=== PATIENT | male | born 1930 | race Caucasian/White ===

== ENCOUNTER 2019-12-09 17:10 | Inpatient (IN) | payer OTHER ==
[~2019-12-09] VITALS: Ht 160 cm; Wt 81.6 kg
[2019-12-09] MEDS ORDERED: PERFOROMIS20 MCG/2 M (18:40)
[2019-12-09] MEDS ORDERED: AVAPRO75 MG (18:42)
[2019-12-09] MEDS ORDERED: LIPITOR40 MG (18:43)
[2019-12-09] MEDS ORDERED: GLIMEPIRIDE1 MG (18:43)
[2019-12-09] MEDS ORDERED: JANUMET 50-1,01 EACH (18:43)
[2019-12-09] MEDS ORDERED: GLIMEPIRIDE2 M1 (18:44)
[2019-12-09] MEDS ORDERED: DUREZOL5 ML (18:44)
[2019-12-09] MEDS ORDERED: SYNTHROID88 MCG (18:45)
[2019-12-09] MEDS ORDERED: LASIX80 MG (18:46)
[2019-12-09] MEDS ORDERED: JANUMET XR 50-1 EACH (18:46)
[2019-12-09] MEDS ORDERED: ATORVASTATIN CA10 MG (18:46)
[2019-12-09] MEDS ORDERED: ACID CONTROL150 MG (18:47)
[2019-12-09] MEDS ORDERED: ELIQUIS5 MG (18:47)
[2019-12-09] MEDS ORDERED: FOSAMAX70 MG (18:48)
[2019-12-09] MEDS ORDERED: ZOLOFT25 MG (18:48)
[2019-12-09] MEDS ORDERED: IRBESARTAN300 MG (18:48)
--- NOTE | 2019-12-09 18:50 | NUR ---
SE RECIBE PTE EL CUAL LLEGA EN AMBULANCIA EL MISMO SE OBSERVA CON DIFICULTAD RESPIRATORIA, USANDO MUSCULOS ACCESORIOS, SE OBSERVA CAMISA CON SECRECIONES (VOMITOS) Y EN MASCARILLA DE PTE. SE PASA A PTE A CAMA SE CONECTA A MONITOR CRADIACO Y OXIMETRIA DE PULSO PTE SE OBSERVA CON SATURACION EN 60% SE COLOCA BIPAP A PTE POR PERSONAL DE TERAPIA RANDOLPH, SE HACE ISRAEL DE VENOPUNCION A PTE EN AMBAS EXTREMIDADES #18 SE HACE ISRAEL DE MUESTRAS Y CULTIVOS A PTE. SE COLOCA DEAL CATHETER A PTE SE OBSERVA DRENANDO ORINA A GRAVEDAD DE COLOR AMARILLO INTENSO. PTE PRESENTA HEMATOMAS POR PREVIAS VENOPUNCION TOMADAS POR PERSONAL DE PARAMEDICOS. SE MANTIENE PTE BAJO OBSERVACION RECIBIENDO TRATAMIENTO MEDICO.
== END 2019-12-22 12:17 | disposition expired | DRG 190 ==
LOC: ER 17:10 → ICU-2 23:12 → ICU 12-15 14:47 → MEDJ 12-19 13:14
PROVIDERS: ADMIT Internal Medicine
PROC: 5A09557 Assistance with Respiratory Ventilation, Greater than 96 Consecutive Hours, Continuous Positive Airway Pressure (ICD-10-PCS; principal; 2019-12-09)
PROC: B245ZZZ Ultrasonography of Left Heart (ICD-10-PCS; 2019-12-10)
PROC: 3E0F7GC Introduction of Other Therapeutic Substance into Respiratory Tract, Via Natural or Artificial Opening (ICD-10-PCS; 2019-12-15)
PROC: 02H633Z Insertion of Infusion Device into Right Atrium, Percutaneous Approach (ICD-10-PCS; 2019-12-21)
PROC: B44HZZZ Ultrasonography of Bilateral Lower Extremity Arteries (ICD-10-PCS; 2019-12-21)
DX: J44.1 Chronic obstructive pulmonary disease with (acute) exacerbation (principal); J96.01 Acute respiratory failure with hypoxia; J69.0 Pneumonitis due to inhalation of food and vomit; I48.20 Chronic atrial fibrillation, unspecified; Z79.01 Long term (current) use of anticoagulants; E11.9 Type 2 diabetes mellitus without complications; E03.9 Hypothyroidism, unspecified; I11.0 Hypertensive heart disease with heart failure; I50.9 Heart failure, unspecified; D69.6 Thrombocytopenia, unspecified; J84.10 Pulmonary fibrosis, unspecified; Z66 Do not resuscitate